=== PATIENT | female | born 1955 | race Caucasian/White ===

== ENCOUNTER 2022-12-29 10:00 | Outpatient (RCR) | payer OTHER, MEDICARE, SELFPAY | END 2022-12-29 10:05 | disposition home or self-care (01) | LOC: PT 10:00 | PROVIDERS: Visit Provider Pediatrics | DX: I89.0 Lymphedema, not elsewhere classified (principal) | CPT/HCPCS: 97140; 97162; 97164; 97760 ==

== ENCOUNTER 2023-11-08 12:52 | Emergency (ER) | payer MEDICARE, OTHER, SELFPAY ==
[2023-11-08 12:53] VITALS: BP 126/65; PULSE 86; RESP 15; TEMP 36.6; O2SAT 98; BMI 40.9
--- NOTE | 2023-11-08 13:00 | ECG_ITS ---
APPROVED REPORT Exam: Resting ECG HR:82 bpm ECG Measurements Heart Rate 82 AXES MA 176 P 60 QRSd 89 QRS -57 QT 368 T 44 QTc 407 Conclusion SINUS RHYTHM LEFT ANTERIOR FASCICULAR BLOCK [QRS AXIS <= -45, QR IN I, RS IN II] No significant changes from prior EKG Electronically signed by : ERNESTO PEREZ, 11/09/2023 00:27:37
[2023-11-08 13:09] VITALS: BMI 41.0
--- NOTE | 2023-11-08 13:13 | XR_ITS ---
FINAL REPORT CLINICAL HISTORY: hypotension COMPARISON: 10/28/2023 FINDINGS: Two views of the chest were obtained. The heart size and pulmonary vascularity are within normal limits. The mediastinum is normal. No acute pulmonary abnormality is identified. There is no pneumothorax. The bony thorax is intact. IMPRESSION: No active cardiopulmonary disease. Reviewed, Interpreted and Dictated by Mauricio Guaman III, MD Transcribed by Katherine Cabral Authenticated and [facility]
[2023-11-08 13:16] VITALS: BP 118/64; PULSE 78; O2SAT 100
[2023-11-08 13:21] VITALS: BP 107/70; BP 118/64; BP 123/65; PULSE 73; PULSE 78; PULSE 95
[2023-11-08 13:23] LABS: Basophils # 0.1 K/mm3 (0-0.2); Basophils % 0.8 % (0.1-2.0); Eosinophils # 0.1 K/mm3 (0.0-0.4); Hemoglobin 13.9 g/dL (12.2-16.2); Lymphocytes # 1.9 K/mm3 (0.7-4.5); Lymphocytes % 29.3 % (10-50); Mean Corpuscular HGB Conc 32.3 g/dL (31.8-35.4); Mean Corpuscular Hemoglobin 30.2 pg (27.0-31.2); Mean Corpuscular Volume 93.6 fl (81-99); Mean Platelet Volume 7.8 fl (7.4-10.4); Monocytes # 0.4 K/mm3 (0.1-1.0); Monocytes % 5.9 % (1.7-9.3); Neutrophils % 62.9 % (37.0-80.0); Platelet Count 234 K/mm3 (142-424); Red Cell Distribution Width 14.3 % (11.5-17.5); White Blood Count 6.3 K/mm3 (4.8-10.8)
[2023-11-08 13:29] LABS: Alanine Aminotransferase 30 U/L (12-78); Albumin Level 4.5 g/dl (3.5-5.0); Albumin/Globulin Ratio 1.7 (1.1-1.8); Alkaline Phosphatase 81 U/L (38-126); Anion Gap 11.1 mEq/L (5-15); Aspartate Amino Transferase 28 U/L (14-36); Bilirubin,Total 0.7 mg/dl (0.2-1.3); Blood Urea Nitrogen 20 mg/dl (7-17); Calcium 9.2 mg/dl (8.4-10.2); Carbon Dioxide 29 mmol/L (22.0-30.0); Chloride 105 mmol/L (98-107); Creatinine Clearance Estimated 40 mL/min (50-200); Estimated Glomerular Filt Rate 45 ml/min (>60); GFR (African American) 54 ML/MIN (>60); Globulin 2.6 g/dL (1.3-3.2); Glucose 100 mg/dl (74-100); Potassium 4.1 mmoL/L (3.5-5.1); Sodium 141 mmol/L (136-145); Total Protein,Serum 7.1 g/dl (6.3-8.2)
--- NOTE | 2023-11-08 13:36 | PC.NURSE ---
Pt gone to RAD
[2023-11-08 13:37] LABS: NT Pro Brain Natriuretic Pep. 56.9 pg/mL (0-125)
--- NOTE | 2023-11-08 13:45 | PC.NURSE ---
lying 118/64 pulse 78 sitting 132/65 pulse 73 standing 107/70 pulse 95
[2023-11-08 13:53] VITALS: BP 114/65; PULSE 77; O2SAT 99
--- NOTE | 2023-11-08 13:55 | PC.NURSE ---
PT AMBULATING TO [facility]
[2023-11-08 13:57] LABS: Troponin I < 0.01 ng/ml (0.00-0.034)
--- NOTE | 2023-11-08 14:23 | ED_ITS ---
Discharge Plan Disposition Patient Disposition: Home, Self-Care Condition: Good Referrals Follow up/Referrals: Mihir Leigh [Primary Care Provider] - See instructions Valentin Issa MD [Staff Physician] - See instructions (11/09/23 at 08:30, come into ED entrance and go to Cardiology Clinic.) Activity Restrictions/Add. Instructions Additional Instructions/Restrictions: Please do not take your lisinopril or Lasix today nor in the morning until you see the pile driver operator helper. Please follow-up with Dr. Issa tomorrow. Clinical Impressions Clinical Impression: Acute hypotension, Adverse reaction to drug Discharge ED Provider: Mic De Luna General Adult HPI <QUANG Samano - Last Filed: 11/08/23 14:43> General Chief complaint: Dizziness Stated complaint: low BP Time Seen by Provider: 11/08/23 14:07 Mode of Arrival: Ambulatory Source of Information: Patient Limitations: No Limitations Description of Symptoms (Recalled from ER Triage Doc. by RN): pt presents to ED with c/o hypotension. pt reports for the past week she has been having low blood pressure readings. pt does take fluid pill and bp medication. pt did take bp medication today, no fluid pill. pt reports dizzyness and lightheadedness. History of Present Illness HPI narrative: Patient presents for evaluation of low blood pressure. Patient took her blood pressure at home and noted to be in the 50s systolic. Patient felt dizzy which prompted her to check her blood pressure. She recently had admission to [facility] for being flu positive as well as for being hypotensive. She saw her PCP who decreased her lisinopril and told her to take her Lasix every other day. Patient takes Lasix for bilateral lower extremity lymphedema. Patient denies a cardiac history or history of VT or stroke. Related Data Allergies Allergy/AdvReac Type Severity Reaction Status Date / Time No Known Allergies Allergy Verified 11/08/23 13:10 PFSH <QUANG Samano - Last Filed: 11/08/23 14:43> PFS Disclaimer: The information contained in this section may have been updated after the patient was seen, as this information can be updated by other users. Social History (Updated 11/08/23 @ 14:43 by QUANG Samano) Smoking Status: Never smoker alcohol intake: never current occupational status: retired Travel in the last 8 weeks: None <QUANG Samano - Last Filed: 11/08/23 14:43> ROS Obtained: Yes Systems reviewed as appropriate & no additional complaints except as documented Physical Exam <QUANG Samano - Last Filed: 11/08/23 14:43> General General appearance: alert and in no apparent distress Head Head exam: atraumatic and normal inspection Eye Eye exam: Present normal appearance, PERRL and EOMI ENT ENT exam: Present normal exam, normal oropharynx and mucous membranes moist Neck Neck exam: Present normal inspection and full ROM Chest Chest inspection: Present normal inspection and symmetric chest wall rise Respiratory Respiratory exam: Present normal lung sounds bilaterally; Absent respiratory distress, wheezes or accessory muscle use Cardiovascular Cardiovascular exam: Present regular rate, normal rhythm, normal heart sounds, +S1 and +S2 Abdominal Exam Abdominal exam: Present soft (Obese) and normal bowel sounds; Absent tenderness, guarding or rebound Extremities Exam Extremities exam: Present normal inspection, full ROM and edema (Patient has 3+ pitting edema to the level of the thighs and the bilateral lower extremities there is evidence of edema previously in the bilateral upper extremities but none currently there is no evidence of cellulitis or erythema the bilateral lower extremities) Neurological Exam Neurological exam: Present alert, oriented X3 and CN II-XII intact Psychiatric Psychiatric exam: Present normal affect and normal mood Skin Skin exam: Present warm, dry and normal color (Except for mentioned above in the muscle skeletal exam) Medical Decision Making <QUANG Samano - Last Filed: 11/08/23 14:43> Medical Records Medical records reviewed: Yes I reviewed the patient's medical records. eWs Inquiry Pt receiving controlled substance: No Vital Signs: 11/08/23 12:53 11/08/23 13:21 11/08/23 13:16 Temperature 97.9 F Temperature Source Oral Pulse Rate 78 Pulse Rate [Left Radial] 86 Pulse Rate [Orthostatic Lying Right Radial] 78 Pulse Rate [Orthostatic Sitting Right Radial] 73 Pulse Rate [Orthostatic Standing Right Radial] 95 H Respiratory Rate 15 Blood Pressure 118/64 Blood Pressure [Orthostatic Lying Right Arm] 118/64 Blood Pressure [Orthostatic Sitting Right Arm] 123/65 Blood Pressure [Orthostatic Standing Right Arm] 107/70 L Blood Pressure [Right Arm] 126/65 Blood Pressure Mean [Right Arm] 85 Blood Pressure Source Blood Pressure Position 02 Sat by Pulse Oximetry 98 100 Oxygen Delivery Method Room Air Room Air 11/08/23 13:53 11/08/23 14:37 Temperature 97.9 F Temperature Source Temporal Artery Scan Pulse Rate 77 78 Pulse Rate [Left Radial] Pulse Rate [Orthostatic Lying Right Radial] Pulse Rate [Orthostatic Sitting Right Radial] Pulse Rate [Orthostatic Standing Right Radial] Respiratory Rate 18 Blood Pressure 114/65 113/65 Blood Pressure [Orthostatic Lying Right Arm] Blood Pressure [Orthostatic Sitting Right Arm] Blood Pressure [Orthostatic Standing Right Arm] Blood Pressure [Right Arm] Blood Pressure Mean [Right Arm] Blood Pressure Source Automatic Cuff Blood Pressure Position Sitting 02 Sat by Pulse Oximetry 99 Oxygen Delivery Method Room Air Room Air Lab Data Lab results reviewed: Yes I reviewed the patient's lab results. Lab Results 11/08/23 13:04: WBC 6.3, RBC 4.60, Hgb 13.9, Hct 43.0, MCV 93.6, MCH 30.2, MCHC 32.3, RDW 14.3, Plt Count 234, MPV 7.8, Neut % (Auto) 62.9, Lymph % (Auto) 29.3, [place] % (Auto) 5.9, Eos % (Auto) 1.0, Baso % (Auto) 0.8, Neut # (Auto) 4.0, Lymph # (Auto) 1.9, [place] # (Auto) 0.4, Eos # (Auto) 0.1, Baso # (Auto) 0.1, Sodium 141, Potassium 4.1, Chloride 105, Carbon Dioxide 29, Anion Gap 11.1, BUN 20 H, Creatinine 1.20 H, Estimated Creat Clear 40, Estimated GFR 45 L, Est GFR ( Amer) 54 L, Glucose 100, Calcium 9.2, Total Bilirubin 0.7, AST 28, ALT 30, Alkaline Phosphatase 81, Troponin I < 0.01, NT-Pro-B Natriuret Pep 56.9, Total Protein 7.1, Albumin 4.5, Globulin 2.6, Albumin/Globulin Ratio 1.7 11/08/23 13:04 11/08/23 13:04 Orders (Tests/Meds): ORDERS Category Date Time Status CXR 2 view (NOT portable) [XR chest 2V] Stat Exams 11/08/23 13:13 Completed BNP [Brain Natriuretic Peptide] Stat Lab 11/08/23 13:04 Completed Complete Blood Count Auto Diff Stat Lab 11/08/23 13:04 Completed Comprehensive Metabolic Panel Stat Lab 11/08/23 13:04 Completed Troponin I Stat Lab 11/08/23 13:04 Completed HEART Score History (anamnesis): Slightly suspicious ECG: Normal Age: >65 years Risk factors: 1-2 risk factors Troponin: </= normal limit HEART Score: 3 Medical Decision Narrative: In summary patient is a 68-year-old female who presents to the emergency department for evaluation of low blood pressure. Patient is has had a labile blood pressure during her ER stay but was initially normotensive on arrival and afebrile. Physical exam is remarkable for significant lymphedema of the bilateral lower extremities and to a lesser extent of the bilateral distal upper extremities. The remainder of the physical exam is nonfocal with no acute findings. Patient denies chest pain fever chills hemoptysis hematochezia melena nausea vomit diarrhea.. Differential diagnosis includes ACS, therapeutic misadventure, PE volume depletion etc. Initial workup will be conducted with hematologic labs twelve-lead EKG plain film chest x-ray. Initial interventions include fluid bolus. Initial workup reviewed by me shows that her hematologic labs are nonactionable and troponin is undetectable, twelve-lead EKG shows normal sinus rhythm, and my informal interpretation of her plain from chest x- ray shows no acute processes with the radiologist read pending.. Upon repeat evaluation patient was able to ambulate to the bathroom without difficulty and ambulate up and down the ER hallway with a normal blood pressure and no recurrence of her symptoms.. Given this is appropriate for discharge with close follow-up and an appointment with Dr. Issa in the a.m. Patient instructed to not take her lisinopril nor her Lasix for the rest of the day nor tomorrow. Patient verbalized understanding and agreement. <Tania Hampton, DO - Last Filed: 11/08/23 15:45> Vital Signs: 11/08/23 12:53 11/08/23 13:21 11/08/23 13:16 Temperature 97.9 F Temperature Source Oral Pulse Rate 78 Pulse Rate [Left Radial] 86 Pulse Rate [Orthostatic Lying Right Radial] 78 Pulse Rate [Orthostatic Sitting Right Radial] 73 Pulse Rate [Orthostatic Standing Right Radial] 95 H Respiratory Rate 15 Blood Pressure 118/64 Blood Pressure [Orthostatic Lying Right Arm] 118/64 Blood Pressure [Orthostatic Sitting Right Arm] 123/65 Blood Pressure [Orthostatic Standing Right Arm] 107/70 L Blood Pressure [Right Arm] 126/65 Blood Pressure Mean [Right Arm] 85 Blood Pressure Source Blood Pressure Position 02 Sat by Pulse Oximetry 98 100 Oxygen Delivery Method Room Air Room Air 11/08/23 13:53 11/08/23 14:37 Temperature 97.9 F Temperature Source Temporal Artery Scan Pulse Rate 77 78 Pulse Rate [Left Radial] Pulse Rate [Orthostatic Lying Right Radial] Pulse Rate [Orthostatic Sitting Right Radial] Pulse Rate [Orthostatic Standing Right Radial] Respiratory Rate 18 Blood Pressure 114/65 113/65 Blood Pressure [Orthostatic Lying Right Arm] Blood Pressure [Orthostatic Sitting Right Arm] Blood Pressure [Orthostatic Standing Right Arm] Blood Pressure [Right Arm] Blood Pressure Mean [Right Arm] Blood Pressure Source Automatic Cuff Blood Pressure Position Sitting 02 Sat by Pulse Oximetry 99 Oxygen Delivery Method Room Air Room Air Lab Data Lab Results 11/08/23 13:04: WBC 6.3, RBC 4.60, Hgb 13.9, Hct 43.0, MCV 93.6, MCH 30.2, MCHC 32.3, RDW 14.3, Plt Count 234, MPV 7.8, Neut % (Auto) 62.9, Lymph % (Auto) 29.3, [place] % (Auto) 5.9, Eos % (Auto) 1.0, Baso % (Auto) 0.8, Neut # (Auto) 4.0, Lymph # (Auto) 1.9, [place] # (Auto) 0.4, Eos # (Auto) 0.1, Baso # (Auto) 0.1, Sodium 141, Potassium 4.1, Chloride 105, Carbon Dioxide 29, Anion Gap 11.1, BUN 20 H, Creatinine 1.20 H, Estimated Creat Clear 40, Estimated GFR 45 L, Est GFR (Afric an Amer) 54 L, Glucose 100, Calcium 9.2, Total Bilirubin 0.7, AST 28, ALT 30, Alkaline Phosphatase 81, Troponin I < 0.01, NT-Pro-B Natriuret Pep 56.9, Total Protein 7.1, Albumin 4.5, Globulin 2.6, Albumin/Globulin Ratio 1.7 Orders (Tests/Meds): ORDERS Category Date Time Status CXR 2 view (NOT portable) [XR chest 2V] Stat Exams 11/08/23 13:13 Completed BNP [Brain Natriuretic Peptide] Stat Lab 11/08/23 13:04 Completed Complete Blood Count Auto Diff Stat Lab 11/08/23 13:04 Completed Comprehensive Metabolic Panel Stat Lab 11/08/23 13:04 Completed Troponin I Stat Lab 11/08/23 13:04 Completed HEART Score HEART Score: 3 Medical Decision Narrative: In summary patient is a 68-year-old female who presents to the emergency department for evaluation of low blood pressure. Patient is has had a labile blood pressure during her ER stay but was initially normotensive on arrival and afebrile. Physical exam is remarkable for significant lymphedema of the bilateral lower extremities and to a lesser extent of the bilateral distal upper extremities. The remainder of the physical exam is nonfocal with no acute findings. Patient denies chest pain fever chills hemoptysis hematochezia melena nausea vomit diarrhea.. Differential diagnosis includes ACS, therapeutic misadventure, PE volume depletion etc. Initial workup will be conducted with hematologic labs twelve-lead EKG plain film chest x-ray. Initial interventions include fluid bolus. Initial workup reviewed by me shows that her hematologic labs are nonactionable and troponin is undetectable, twelve-lead EKG shows normal sinus rhythm, and my informal interpretation of her plain from chest x- ray shows no acute processes with the radiologist read pending.. Upon repeat evaluation patient was able to ambulate to the bathroom without difficulty and ambulate up and down the ER hallway with a normal blood pressure and no recurrence of her symptoms.. Given this is appropriate for discharge with close follow-up and an appointment with Dr. Issa in the a.m. Patient instructed to not take her lisinopril nor her Lasix for the rest of the day nor tomorrow. Patient verbalized understanding and agreement. I was consulted by the BHAVNA, and we discussed the complexity of the problems being addressed. I approved the treatment and management plan for this patient's care in the emergency department, thus performing a substantive p ortion of the medical decision making. Tania Hampton, Critical Care <QUANG Samano - Last Filed: 11/08/23 14:43> Critical Care Time Critical Care Time: No
[2023-11-08 14:37] VITALS: BP 113/65; PULSE 78; RESP 18; TEMP 36.6; O2SAT 98
== END 2023-11-08 14:37 | disposition home or self-care (01) ==
PROVIDERS: Emergency Provider Emergency Medicine; PCP Pediatrics
DX: I95.2 Hypotension due to drugs (principal); I44.4 Left anterior fascicular block; R42 Dizziness and giddiness; T50.905A Adverse effect of unspecified drugs, medicaments and biological substances, initial encounter
CPT/HCPCS: 71046; 80053; 83880; 84484; 85025; 93005; 99284

== ENCOUNTER 2023-11-09 09:14 | Outpatient (CLI) | payer MEDICARE, OTHER, SELFPAY ==
[2023-11-09 10:19] LABS: Alanine Aminotransferase 23 U/L (12-78); Albumin Level 4.5 g/dl (3.5-5.0); Alkaline Phosphatase 100 U/L (38-126); Aspartate Amino Transferase 22 U/L (14-36); Chol/HDL Ratio 3.8 (1-3.5); Cholesterol 204 mg/dl (140-200); HDL Cholesterol 54 mg/dl (40-60); Total Protein,Serum 6.7 g/dl (6.3-8.2); Triglycerides 169 mg/dl (30-150); VLDL Cholesterol 34 mg/dL (0-40)
[2023-11-09 10:28] LABS: NT Pro Brain Natriuretic Pep. 55.3 pg/mL (0-125)
[2023-11-09 10:30] LABS: Direct LDL Cholesterol 99.07 mg/dL (100-129)
[2023-11-09 10:36] LABS: Free T4 (Free Thyroxine) 1.27 ng/dl (0.78-2.19)
[2023-11-09 10:49] LABS: Thyroid Stimulating Hormone 1.85 uIU/mL (0.465-4.68)
== END 2023-11-09 23:59 ==
LOC: LAB 09:16
PROVIDERS: PCP Pediatrics; Visit Provider Nurse Practitioner
DX: R06.00 Dyspnea, unspecified (principal); R94.31 Abnormal electrocardiogram [ECG] [EKG]; R60.9 Edema, unspecified; I95.9 Hypotension, unspecified; E78.5 Hyperlipidemia, unspecified
CPT/HCPCS: 80061; 80076; 83880; 84439; 84443; 93270

== ENCOUNTER 2023-11-29 07:46 | Outpatient (CLI) | payer OTHER, MEDICARE, SELFPAY ==
--- NOTE | 2023-11-29 07:48 | NM_ITS ---
APPROVED REPORT Exam: Nuclear Stress Test Indication: SOB, High cholesterol, Family history Patient Location: Outpatient Stress Tech: Gudelia Levy NM Tech:Laury Dhillon, ARRT, RT (R)(N) Ht: 5 ft 5 in Wt: 242 lbs Bra Size: 42DD HR: 66 bpm BP: 129/66 mmHg BSA: 2.15 m2 Rhythm: NSR TID: 1.15 BMI: 40.2 History: SOB, High cholesterol, Family history Procedure: Patient received 0.4 mg of intravenous Lexiscan, resting heart rate 66 bpm, resting blood pressure 129/66 mmHg, with Lexiscan maximum heart rate achieved was 107 bpm which is % of the maximum predicted heart rate and blood pressure was 129/66 mmHg. With Lexiscan, patient denied any complaint of chest pain. Cardiac Stress and Resting SPECT Images: Cardiac Stress and Resting SPECT images were obtained using technetium 99m Myoview 32.6 mCi stress and 10.74 mCi at rest. The patient could not lie on her abdomen. Therefore, prone stress imaging could not be performed. This may affect the diagnostic interpretation of the study findings. Resting and stress imaging in supine positions demonstrate no evidence of fixed or reversible perfusion defects. Gated imaging demonstrates low-normal global and regional LV systolic function. LVEF is calculated at 52%. Conclusion: No evidence of fixed or reversible perfusion defects. Gated imaging demonstrates low-normal global and regional LV systolic function. LVEF is calculated at 52%. Electronically signed by : Verónica Bowens MD 11/30/2023 11:19:15
[2023-11-29] MEDS: ISOTOPE MYOVIEW (PER STUDY) 1 DOSE IV (09:17)
[2023-11-29] MEDS: SODIUM CHLORIDE 0.9% 10ML SYR (RAD ONLY) 10 ML IV ×2 (09:17)
[2023-11-29] MEDS: REGADENOSON 0.4MG/5ML SYRINGE 0.400000000000000022 MG IV (09:17)
--- NOTE | 2023-11-29 09:23 | CA_ITS ---
APPROVED REPORT EXAM: Comprehensive 2D, Doppler, and color-flow Echocardiogram Educational Speech Language Clinician: Grazyna Campuzano CRT Ht: 5 ft 5 in Wt: 242lbs BSA: 2.15 BP: 123/64 mmHg Indications: Abnormal ECG, Shortness of Breath, Peripheral Edema, hx colon cancer 2D Dimensions LA Volume 66.60 mL LA Volume Index 30.30 mL/m2 (M/F) 16-34 M-Mode Dimensions RVDd 2.64 cm (0.9-2.6) LA Diam 3.87 cm (1.9-4.0) LVDd 5.04 cm (3.5-5.7) LVDs 3.57 cm (3.5-5.7) IVSd 1.77 cm (0.6-1.1) PWd 0.97 cm (0.6-1.1) EF (Teich) 55.80% FS 29.20% EDV (Teich) 120.50 mL TAPSE 2.30 (<1.7) ESV (Teich) 53.30 mL LV Diastology E Decel Time 160 (160-240 msec) E/A Ratio 0.83 MED A' 9.20 cm/s LAT A' 12.20 cm/s Aortic Valve AO Peak GR. 6.40 mmHg Mitral Valve MV E Max Armond. 78.0 (40-130 cm/s) MV A Velocity 95.0 (40-130 cm/s) E/A Ratio 0.83 MV PHT 47.0 ms Pulmonary Valve PV Peak Velocity 92.0 (50-150 cm/s) Tricuspid Valve TR P. Velocity 287.00 cm/s RAP Estimate 10.00 mmHg RVSP 43.00 mmHg Left Ventricle The left ventricle is normal size. The left ventricular systolic function is low normal. The left ventricular ejection fraction is within the normal range. There is normal LV segmental wall motion. The left ventricular diastolic function is normal. LVEF is 50-55%. Right Ventricle The right ventricle is mildly dilated. The right ventricular systolic function is normal. Atria The left atrium is mildly dilated. The right atrium size is normal. There is no Doppler evidence of interatrial shunt. Aortic Valve The aortic valve is mildly thickened. There is no aortic valvular stenosis. Trace aortic regurgitation. Mitral Valve The mitral valve leaflets are mildly thickened. Trace mitral regurgitation. No evidence of mitral valve stenosis. Tricuspid Valve The tricuspid valve leaflets are thin and pliable. Trace tricuspid regurgitation. There is insufficient TR jet to estimate RVSP. Pulmonic Valve The pulmonary valve is normal in structure. Mild pulmonic regurgitation. Great Vessels The aortic root is normal in size. The ascending aorta is not well-visualized. The IVC is not well-visualized. Pericardium There is no pericardial effusion. Other Information Study Quality: Technically Difficult Conclusion Technically difficult study due to poor acoustic windows. Low normal LV systolic function (LVEF 50-55%). Mild RV dilation With normal RV function. Mild LA dilation. No significant valvular stenosis or regurgitation. Electronically signed by : Verónica Bowens MD 12/01/2023 11:51:36
--- NOTE | 2023-11-29 09:44 | CA_ITS ---
APPROVED REPORT Exam: Pharmacologic Technologist: Gudelia Levy Ht: 5 ft 5 in Wt: 242 lbs BSA: 2.15 m2 HR: 65 bpm BP: 129/66 mmHg Rhythm: NSR Indications: R94.31, R06.00, R60.9 Medical History Medications: Lisinopril,,,,, Levothyroxine,,,,, Atorvastatin,,,,, Famotidine,,,,, Furosemide,,,,, Stress Test Details Test: LEXISCAN HR Resting HR: 66 bpm Max Heart Rate (APMHR): 154 bpm Max HR Achieved: 107 bpm Target HR (85% APMHR): 131 bpm % of APMHR: 69 Recovery HR: 75 bpm BP Resting BP: 129.0/66.0 mmHg Max BP: 129.0/66.0 mmHg Recovery BP: 123.0/67.0 mmHg ECG Resting ECG: Sinus rhythm Stress ECG: No significant ST changes Arrhythmia: None Clinical Exercise duration: 04:03 min Highest Stage Achieved: Stress ECG Conclusion Symptoms: Dyspnea Arrhythmias/Ectopy: None ST-T Changes: No significant ST changes Conclusion: EKG portion unremarkable due to Lexiscan infusion. Myoview images reported separately. Test Summary REST . . . . . . . Resting REST 04:30 . . 66 . 129/ 66 . . Stage 1 . . . . . . . Myoview Injected Stage 1 01:00 . . 102 . . . . Stage 2 01:00 . . 93 . 123/ 64 . . Stage 3 01:00 . . 84 . . . . Stage 4 01:00 . . 83 . 116/ 64 . . Stage 4 01:03 . . 82 . 116/ 64 . Stop exercise at 04:03 RECOVERY 01:00 . . 76 . 113/ 66 . . RECOVERY 02:00 . . 84 . 120/ 62 . . RECOVERY 03:00 . . 77 . 129/ 65 . . RECOVERY 03:46 . . 79 . 123/ 67 . . Electronically signed by : Verónica Bowens MD 11/30/2023 11:17:57
== END 2023-11-29 23:59 ==
LOC: RAD 07:48
PROVIDERS: PCP Pediatrics; Visit Provider Nurse Practitioner
DX: R06.00 Dyspnea, unspecified (principal); R94.31 Abnormal electrocardiogram [ECG] [EKG]; R60.9 Edema, unspecified; I95.9 Hypotension, unspecified
CPT/HCPCS: 78452; 93017; 93018; 93306; A9502; J2785